=== PATIENT | female | born 1960 | race African-American/Black ===

== ENCOUNTER 2020-09-05 00:16 | Emergency (ER) | payer OTHER ==
[~2020-09-05] VITALS: Ht 172.7 cm; Wt 135.9 kg
--- NOTE | 2020-09-05 00:28 | PHYS DOC ---
Past Medical History Past Medical History: Hypertension Past Surgical History: No Surgical History General Adult EDM: Chief Complaint: BACK PAIN - NO INJURY HPI: HPI: 60-year-old female with history of hypertension, who presents for evaluation of sudden onset of right flank pain that began this evening at around 2100. Associate with nausea and vomiting. The patient's pain radiates anteriorly to the right lower quadrant. No prior abdominal surgeries. No aggravating or alleviating factors. No prior history of nephrolithiasis. Review of Systems: Review of Systems: Gen: No fever, chills. CV: No CP, palpitations. Resp. No SOB, cough. GI: Reports abd pain, N/V. : No dysuria, hematuria. Neuro: No KELLER, dizziness, weakness. MSK: No myalgia, arthralgia. Skin: No acute rash or lesion. Remainder of systems reviewed and negative unless otherwise specified. Heart Score: Risk Factors: Risk Factors: DM, Current or recent (<one month) smoker, HTN, HLP, family history of CAD, obesity. Risk Scores: Score 0 - 3: 2.5% MACE over next 6 weeks - Discharge Home Score 4 - 6: 20.3% MACE over next 6 weeks - Admit for Clinical Observation Score 7 - 10: 72.7% MACE over next 6 weeks - Early Invasive Strategies Physical Exam: PE: Gen: NAD. Well nourished. Head: NC/AT. Eyes: No scleral icterus. No conjunctival injection. ENT: MMM. Posterior OP clear. Neck: Supple. CV: RRR. Peripheral pulses intact. Resp: CTAB. Abd: Soft. ND. Right flank percussion tenderness. No peritoneal signs. MSK: No peripheral cyanosis. No edema. Neuro: Awake and alert. Skin. Warm. Dry. Psych: Appropriate mood & affect. Current Patient Data: Labs: Laboratory Tests Test 09/05/20 00:35 09/05/20 01:25 White Blood Count 13.6 x10^3/uL (4.0-11.0) Red Blood Count 5.75 x10^6/uL (3.50-5.40) Hemoglobin 14.4 g/dL (12.0-15.5) Hematocrit 41.0 % (36.0-47.0) Mean Corpuscular Volume 71 fL (79-100) Mean Corpuscular Hemoglobin 25 pg (25-35) Mean Corpuscular Hemoglobin Concent 35 g/dL (31-37) Red Cell Distribution Width 15.5 % (11.5-14.5) Platelet Count 334 x10^3/uL (140-400) Neutrophils (%) (Auto) 57 % (31-73) Lymphocytes (%) (Auto) 32 % (24-48) Monocytes (%) (Auto) 9 % (0-9) Eosinophils (%) (Auto) 1 % (0-3) Basophils (%) (Auto) 1 % (0-3) Neutrophils # (Auto) 7.8 x10^3/uL (1.8-7.7) Lymphocytes # (Auto) 4.3 x10^3/uL (1.0-4.8) Monocytes # (Auto) 1.2 x10^3/uL (0.0-1.1) Eosinophils # (Auto) 0.1 x10^3/uL (0.0-0.7) Basophils # (Auto) 0.1 x10^3/uL (0.0-0.2) Sodium Level 137 mmol/L (136-145) Chloride Level 101 mmol/L (98-107) Carbon Dioxide Level 25 mmol/L (21-32) Anion Gap 11 (6-14) Blood Urea Nitrogen 21 mg/dL (7-20) Estimated GFR (Cockcroft-Gault) 61.5 BUN/Creatinine Ratio 19 (6-20) Glucose Level 186 mg/dL (70-99) Calcium Level 9.1 mg/dL (8.5-10.1) Total Bilirubin 0.7 mg/dL (0.2-1.0) Aspartate Amino Transf (AST/SGOT) 23 U/L (15-37) Alkaline Phosphatase 77 U/L (46-116) Total Protein 8.7 g/dL (6.4-8.2) Albumin 3.7 g/dL (3.4-5.0) Albumin/Globulin Ratio 0.7 (1.0-1.7) Lipase 166 U/L (73-393) Urine Collection Type Unknown Urine Color Yellow Urine Clarity Clear Urine pH 6.0 (<5.0-8.0) Urine Specific [place] 1.020 (1.000-1.030) Urine Protein Negative mg/dL (NEG-TRACE) Urine Glucose (UA) Negative mg/dL (NEG) Urine Ketones (Stick) Negative mg/dL (NEG) Urine Blood Large (NEG) Urine Nitrite Negative (NEG) Urine Bilirubin Negative (NEG) Urine Urobilinogen Dipstick 0.2 mg/dL (0.2 mg/dL) Urine Leukocyte Esterase Trace (NEG) Urine RBC Tntc /HPF (0-2) Urine WBC 5-10 /HPF (0-4) Urine Squamous Epithelial Cells Many /LPF Urine Bacteria Mod /HPF (0-FEW) Urine Mucus Mod /LPF EKG: EKG: [] Radiology/Procedures: Radiology/Procedures: Study: CT abdomen/pelvis without intravenous contrast Indication: Right flank pain per Comparison: None available. Technique: Helical CT imaging performed of the abdomen and pelvis without the use of intravenous contrast. Sagittal and coronal reformats were obtained. One or more of the following individualized dose reduction techniques were utilized for this examination: 1. Automated exposure control 2. Adjustment of the mA and/or kV according to patient size 3. Use of iterative reconstruction technique. Findings: Inherently limited evaluation without intravenous contrast. Chest: Left lower lobe granulomas. Right middle lobe nodule measuring 4 mm. Small hiatal hernia. Liver: Hepatic steatosis. Gallbladder/Biliary Tree: Mild/moderate distention but without CT findings of acute cholecystitis. There may be some gallbladder sludge. No calcified stones. Tiny focus of gas near the tip of the common bile duct. No intrahepatic pneumobilia. Pancreas: Unremarkable. Spleen: Within normal limits for size. Adrenal Glands: No adrenal gland mass. Kidneys/Ureters/Bladder: Minimal asymmetric volume of the right collecting system but there is no hydroureteronephrosis. Small focus of mineralization within the dependent aspect of the urinary bladder measures 2.5 mm. Reproductive Organs: Absent uterus. No adnexal mass. Colon/appendix/small bowel/stomach: A few colonic diverticuli without diverticulitis. Normal appendix. Nonobstructed small bowel. No apparent gastric abnormality. Vasculature: Nonaneurysmal aorta. Lymph Nodes: Subcentimeter upper abdominal, mesenteric and retroperitoneal lymph nodes. A few inguinal lymph nodes measure just over 1 cm short axis such as on the right on images 174 and 185 series 2. Mildly enlarged bilateral iliac chain lymph nodes. Peritoneum and Body Wall: No free fluid or pneumoperitoneum. Bones: Scattered degenerative changes greatest at the lower lumbar spine. Miscellaneous: None. Impression: 1. No hydroureteronephrosis however there is a 2.5 mm stone within the urinary bladder. Given reported right flank pain this could be on account of a recently passed stone from the right ureter. 2. Mild/moderate distention of the gallbladder but without CT findings of acute cholecystitis. Possible gallbladder sludge. Correlate for right upper quadrant pain. 3. A few mildly enlarged inguinal and iliac chain lymph nodes. No significant enlargement of lymph nodes elsewhere throughout the imaged body. These are indeterminant and follow-up could be considered such as in 3 months to confirm stability. 4. Right middle lobe nodule measuring 4 mm. In the absence of any pertinent medical history or risk factors, no dedicated follow-up is needed per Fleischner guidelines. 5. Additional chronic observations as above. Electronically signed by: JENN REYNOSO MD (09/05/2020 1:37 AM) [facility] [place] Course & Med Decision Making: Course & Med Decision Making Pertinent Labs and Imaging studies reviewed. (See chart for details) In summary, 60F p/w sudden right flank pain that radiates to groin, found to have a recently passed 2.5 mm stone. Renal fxn WNL. Given meds with efficacy, pain resolved. UA with equivocal findings for UTI. Will DC with Rx norco, bentyl, zofran, vantin. Return precautions given. Cristy Disclaimer: Cristy Disclaimer: This electronic medical record was generated, in whole or in part, using a voice recognition dictation system. Departure Departure Impression: Primary Impression: Ureterolithiasis Disposition: 01 DC HOME SELF CARE/HOMELESS Condition: STABLE Referrals: NON,STAFF (PCP) Patient Instructions: Kidney Stones, [id number] Additional Instructions: Please follow up with urology at the [facility] by calling [phone]. You may also follow up with the urologist of your choice. Take the prescribed medications as directed. Scripts Dicyclomine Hcl (DICYCLOMINE HCL) 10 Mg Capsule 1 CAP PO TID PRN for abdominal spasm, #20 CAP 11 Refills Prov: LE,CORDELL H DO 09/05/20 Cefpodoxime Proxetil (CEFPODOXIME PROXETIL) 100 Mg Tablet 100 MG PO BID, #10 TAB Prov: LE,CORDELL H DO 09/05/20 Ondansetron (ONDANSETRON ODT) 4 Mg Tab.rapdis 1 TAB PO PRN Q6-8HRS, #16 TAB Prov: LE,CORDELL H DO 09/05/20 Hydrocodone/Acetaminophen (Hydrocodone-Acetamin 5-325 mg) 1 Each Tablet 1 EACH PO Q8HRS PRN for PAIN, #12 TAB Prov: LE,CORDELL H DO 09/05/20 LE,CORDELL H DO Sep 05, 2020 00:28
[2020-09-05] MEDS ORDERED: ONDANSETRON PF 4 MG/2 ML VIAL. ONE (00:35)
[2020-09-05] MEDS ORDERED: MORPHINE SULFATE 4 MG/ML VIAL. ONE (00:36)
[2020-09-05 00:44] LABS: BASO # 0.1 x10^3/uL (0.0-0.2); BASO % 1 % (0-3); EOS # 0.1 x10^3/uL (0.0-0.7); EOS % 1 % (0-3); HEMOGLOBIN 14.4 g/dL (12.0-15.5); LYMPH # 4.3 x10^3/uL (1.0-4.8); LYMPH % 32 % (24-48); MEAN CORPUSCULAR HEMOGLOBIN 25 pg (25-35); MEAN CORPUSCULAR HGB CONC 35 g/dL (31-37); MEAN CORPUSCULAR VOLUME 71 fL (79-100); MONO # 1.2 x10^3/uL (0.0-1.1); MONO % 9 % (0-9); NEUT # 7.8 x10^3/uL (1.8-7.7); NEUT % 57 % (31-73); PLATELET COUNT 334 x10^3/uL (140-400); RED BLOOD COUNT 5.75 x10^6/uL (3.50-5.40); RED CELL DISTRIBUTION WIDTH 15.5 % (11.5-14.5); WHITE BLOOD COUNT 13.6 x10^3/uL (4.0-11.0)
[2020-09-05] MEDS ORDERED: IV NORMAL SALINE 1000ML BAG 1,000 ML IV SCH (00:45)
[2020-09-05] MEDS ORDERED: ONDANSETRON PF 4 MG/2 ML VIAL. IVP ONE (00:45)
[2020-09-05] MEDS ORDERED: MORPHINE SULFATE 4 MG/ML VIAL. IV ONE (00:45)
[2020-09-05 01:02] LABS: CALCIUM 9.1 mg/dL (8.5-10.1); CREATININE 1.1 mg/dL (0.6-1.0); GFR 61.5; POTASSIUM 3.7 mmol/L (3.5-5.1)
[2020-09-05 01:05] LABS: ALBUMIN 3.7 g/dL (3.4-5.0); ALBUMIN/GLOBULIN RATIO 0.7 (1.0-1.7); TOTAL BILIRUBIN 0.7 mg/dL (0.2-1.0); TOTAL PROTEIN 8.7 g/dL (6.4-8.2)
[2020-09-05] MEDS ORDERED: DICYCLOMINE HCL 10 MG CAPSULE PO ONE (01:30)
[2020-09-05 01:37] LABS: BILIRUBIN,URINE NEGATIVE (NEG); CLARITY,URINE CLEAR; COLOR,URINE YELLOW; NITRITE,URINE NEGATIVE (NEG); PROTEIN,URINE NEGATIVE (NEG-TRACE); UROBILINOGEN,URINE 0.2 mg/dL (0.2 mg/dL)
--- NOTE | 2020-09-05 01:39 | RAD ---
Study: CT abdomen/pelvis without intravenous contrast Indication: Right flank pain per Comparison: None available. Technique: Helical CT imaging performed of the abdomen and pelvis without the use of intravenous cont rast. Sagittal and coronal reformats were obtained. One or more of the following individualized dose reduction techniques were utilized for this examinat ion: 1. Automated exposure control 2. Adjustment of the mA and/or kV according to patient size 3. Use of iterative reconstruction technique. Findings: Inherently limited evaluation without intravenous contrast. Chest: Left lower lobe granulomas. Right middle lobe nodule measuring 4 mm. Small hiatal hernia. Liver: Hepatic steatosis. Gallbladder/Biliary Tree: Mild/moderate distention but without CT findings of acute cholecystitis. Th ere may be some gallbladder sludge. No calcified stones. Tiny focus of gas near the tip of the common bile duct. No intrahepatic pneumobilia. Pancreas: Unremarkable. Spleen: Within normal limits for size. Adrenal Glands: No adrenal gland mass. Kidneys/Ureters/Bladder: Minimal asymmetric volume of the right collecting system but there is no hyd roureteronephrosis. Small focus of mineralization within the dependent aspect of the urinary bladder measures 2.5 mm. Reproductive Organs: Absent uterus. No adnexal mass. Colon/appendix/small bowel/stomach: A few colonic diverticuli without diverticulitis. Normal appendix . Nonobstructed small bowel. No apparent gastric abnormality. Vasculature: Nonaneurysmal aorta. Lymph Nodes: Subcentimeter upper abdominal, mesenteric and retroperitoneal lymph nodes. A few inguina l lymph nodes measure just over 1 cm short axis such as on the right on images 174 and 185 series 2. Mildly enlarged bilateral iliac chain lymph nodes. Peritoneum and Body Wall: No free fluid or pneumoperitoneum. Bones: Scattered degenerative changes greatest at the lower lumbar spine. Miscellaneous: None. Impression: 1. No hydroureteronephrosis however there is a 2.5 mm stone within the urinary bladder. Given report ed right flank pain this could be on account of a recently passed stone from the right ureter. 2. Mild/moderate distention of the gallbladder but without CT findings of acute cholecystitis. Possi ble gallbladder sludge. Correlate for right upper quadrant pain. 3. A few mildly enlarged inguinal and iliac chain lymph nodes. No significant enlargement of lymph n odes elsewhere throughout the imaged body. These are indeterminant and follow-up could be considered such as in 3 months to confirm stability. 4. Right middle lobe nodule measuring 4 mm. In the absence of any pertinent medical history or risk factors, no dedicated follow-up is needed per Fleischner guidelines. 5. Additional chronic observations as above. Electronically signed by: JENN REYNOSO MD (09/05/2020 1:37 AM) [facility]
[2020-09-05 01:47] LABS: BACTERIA,URINE MOD /HPF (0-FEW); RBC,URINE TNTC /HPF (0-2)
[2020-09-05 01:56] VITALS: BP 131/78
[2020-09-05] MEDS ORDERED: CEFP100T PO (02:14)
[2020-09-05] MEDS ORDERED: HYDR-2759 PO (02:14)
[2020-09-05] MEDS ORDERED: DICY10CA3 PO (02:14)
[2020-09-05] MEDS ORDERED: ONDA4TAB12 PO (02:14)
[2020-09-05 03:54] LABS: MICROCYTOSIS MOD; PLT ESTIMATE ADEQUATE (ADEQUATE); TARGET CELLS OCC
== END 2020-09-05 02:25 | disposition home or self-care (01) ==
LOC: ER 00:16
DX: N20.1 Calculus of ureter (principal); R11.2 Nausea with vomiting, unspecified
CPT/HCPCS: 36415; 74176; 80053; 81001; 83690; 83735; 85025; 96361; 96374; 96375; 99285; J2270; J2405; J7030